=== PATIENT | female | born 1965 | race Hispanic/Latino ===

== ENCOUNTER → 2022-01-22 | Outpatient (CLI) | payer BC | END | disposition home or self-care (01) | LOC: RAH 10:47 | PROVIDERS: ATTEND Family Medicine Sports Medicine | DX: R10.32 Left lower quadrant pain (principal); N32.89 Other specified disorders of bladder; Z90.710 Acquired absence of both cervix and uterus; Z90.721 Acquired absence of ovaries, unilateral | CPT/HCPCS: 76856 ==

== ENCOUNTER → 2023-09-16 | Outpatient (CLI) | payer BC ==
[2023-09-16 10:22] LABS: BASOPHILS # (AUTO) 0.04 K/uL (0.00-0.20); BASOPHILS % (AUTO) 0.6 % (0.0-5.0); EOSINOPHILS # (AUTO) 0.13 K/uL (0.00-0.70); HEMATOCRIT 44.9 % (36-48); IMMATURE GRANULOCYTE ABSOLUTE 0.02 K/uL (0-1); LYMPHOCYTES # (AUTO) 2.7 K/uL (1.0-4.8); MEAN CORPUSCULAR HEMOGLOBIN 31.5 pg (27.0-33.0); MEAN CORPUSCULAR HGB CONC 34.1 g/dL (32.0-36.0); MEAN CORPUSCULAR VOLUME 92.6 fL (79-99); MONOCYTES # (AUTO) 0.5 K/uL (0.1-1.0); MONOCYTES % (AUTO) 7.1 % (3.0-13.0); NEUTROPHILS # (AUTO) 3.2 K/uL (1.8-7.7); PLATELET COUNT (AUTO) 205 K/uL (130-400); RED BLOOD CELL COUNT(AUTO) 4.85 MIL/uL (4.00-5.50); WHITE BLOOD COUNT (AUTO) 6.6 K/uL (4.8-10.8)
[2023-09-16 10:33] LABS: BILIRUBIN,TOTAL 0.3 mg/dL (0.2-1.0); CREATININE 0.8 mg/dL (0.5-1.5); POTASSIUM 4.2 mmol/L (3.5-5.1); TOTAL PROTEIN, SERUM 7.4 g/dL (6.0-8.3)
== END | disposition home or self-care (01) ==
LOC: LAB 09:35
PROVIDERS: ATTEND Internal Medicine Gastroenterology
DX: R10.32 Left lower quadrant pain (principal)
CPT/HCPCS: 36415; 80053; 85025

== ENCOUNTER → 2023-09-22 | Outpatient (CLI) | payer BC ==
[~2023-09-22] MED LIST: IOHEXOL 350 MG/ML 100ML INFUS..BTL IV ONE
== END | disposition home or self-care (01) ==
LOC: RAH 07:35
PROVIDERS: ATTEND Internal Medicine Gastroenterology
DX: K76.0 Fatty (change of) liver, not elsewhere classified (principal); R10.32 Left lower quadrant pain
CPT/HCPCS: 74178; Q9967

== ENCOUNTER 2024-04-07 21:12 | Emergency (ER) | payer BC ==
[~2024-04-07] VITALS: Ht 162.6 cm; Wt 90.7 kg
[2024-04-07 21:28] LABS: APPEARANCE,URINE CLEAR (CLEAR); BILIRUBIN,URINE NEGATIVE (NEGATIVE); COLOR,URINE COLORLESS (YELLOW); GLUCOSE, URINE (UA) NEGATIVE (NEGATIVE); KETONES,URINE NEGATIVE (NEGATIVE); LEUKOCYTE ESTERASE ,URINE 500 Leu/uL (NEGATIVE); NITRATE,URINE NEGATIVE (NEGATIVE); OCCULT BLOOD,URINE NEGATIVE (NEGATIVE); PROTEIN,URINE NEGATIVE (NEGATIVE); UROBILINOGEN,URINE 0.2 mg/dL (0.2-1.0)
[2024-04-07 21:30] LABS: ADD UA MICROSCOPIC YES
[2024-04-07 21:32] LABS: BACTERIA,URINE RARE /HPF (None Seen); MUCUS,URINE RARE LPF (None Seen); OTHER CASTS, URINE 1 /LPF (None Seen); RBC,URINE 0-1 /HPF (0-1); SQUAMOUS EPITHELIAL CELL,UR RARE /HPF (0-2); WBC CLUMP RARE /HPF (0-1); WBC,URINE 26-50 /HPF (0-1)
[2024-04-07 21:37] LABS: BASOPHILS # (AUTO) 0.04 K/uL (0.00-0.20); BASOPHILS % (AUTO) 0.4 % (0.0-5.0); EOSINOPHILS # (AUTO) 0.19 K/uL (0.00-0.70); EOSINOPHILS % (AUTO) 1.7 % (0.0-8.0); HEMATOCRIT 42.5 % (36-48); IMMATURE GRANULOCYTE ABSOLUTE 0.03 K/uL (0-1); LYMPHOCYTES # (AUTO) 3.4 K/uL (1.0-4.8); LYMPHOCYTES % (AUTO) 30.6 % (21.0-51.0); MEAN CORPUSCULAR HEMOGLOBIN 31.4 pg (27.0-33.0); MEAN CORPUSCULAR HGB CONC 33.9 g/dL (32.0-36.0); MEAN CORPUSCULAR VOLUME 92.6 fL (79-99); NEUTROPHILS # (AUTO) 6.4 K/uL (1.8-7.7); PLATELET COUNT (AUTO) 183 K/uL (130-400); RED BLOOD CELL COUNT(AUTO) 4.59 MIL/uL (4.00-5.50); RED CELL DISTRIBUTION WIDTH 11.8 % (11.0-15.5); WHITE BLOOD COUNT (AUTO) 11.1 K/uL (4.8-10.8)
[2024-04-07 21:44] LABS: POTASSIUM 3.9 mmol/L (3.5-5.1)
[2024-04-08 00:15] VITALS: TEMP 98.2
[2024-04-08] MEDS: morPHINE 4 MG SYG IM ONE (00:40)
[2024-04-08 03:25] VITALS: BP 145/77; PULSE 58; RESP 18; O2SAT 98
[2024-04-08] MEDS ORDERED: SULF1TAB42 PO (03:34)
[2024-04-08] MEDS: sulfaMETHOX-TMP DS 800/160 TAB PO SCH (03:56)
== END 2024-04-08 04:03 | disposition home or self-care (01) ==
LOC: EDH 21:12
DX: N89.8 Other specified noninflammatory disorders of vagina (principal); E66.01 Morbid (severe) obesity due to excess calories; Z90.710 Acquired absence of both cervix and uterus; Z68.34 Body mass index [BMI] 34.0-34.9, adult
CPT/HCPCS: 99284; 76856; 80048; 85025; 87210; 87086; 87491; 87591; 81001; 36415; 96372; J2270

== ENCOUNTER 2024-12-20 17:40 | Emergency (ER) | payer BC ==
[~2024-12-20] VITALS: Ht 162.6 cm; Wt 90.7 kg
[~2024-12-20 17:40] MED LIST changes: -IOHEXOL 350 MG/ML 100ML INFUS..BTL IV ONE; +SULF1TAB42 PO
--- NOTE | 2024-12-20 18:13 | ERN ---
General Chief Complaint: Upper Extremity Pain/Injury Stated Complaint: ARM PAIN Time Seen by MD: 17:52 Source: patient History of Present Illness Initial Comments Patient is a 59-year-old female coming in complaining of left arm pain. Patient states he has she woke up like this. Pain initiates from the left trapezius muscle extends to the distal upper left extremity. She states that movement exacerbates her pain. Palpation of the left trapezius also exacerbates pain. Allergies: Coded Allergies: No Known Drug Allergies (Unverified Allergy, Unknown, 01/03/24) Home Meds Active Scripts Sulfamethoxazole/Trimethoprim (Bactrim Ds Tablet) 800 Mg-160 Mg Tablet, 1 TAB PO BID for 10 Days, #20 TAB Prov:DANE SILVA MD 04/08/24 Past Medical History Past Medical History: Other Medical History Other: PALPITATONS Past Surgical History: Hysterectomy, Other Surgical History Other: RT OVARY Female( History) History: Not Applicable ROS Dictation CONSTITUTIONAL: No chills, no fever, no weakness, no diaphoresis, no malaise. HEAD/FACE: No signs of trauma. EENT: No eye pain, no blurred vision, no tearing, no double vision, no ear pain, no ear discharge, no nose pain, no nasal congestion, no throat pain, no throat swelling, no mouth pain. RESPIRATORY: No cough, no orthopnea, no SOB, no stridor, no wheezing. CARDIOVASCULAR: No chest pain, no edema, no palpitations, no syncope. GASTROINTESTINAL/ABDOMINAL: No abdominal pain, no constipation, no diarrhea, no nausea, no vomiting. GENITOURINARY: No abnormal discharge, no dysuria, no frequent urination, no hematuria. No complaints of pain in the genitals. MUSCULOSKELETAL: No back pain, no gout, no joint pain, no joint swelling, muscle pain, no muscle stiffness, no neck pain. INTEGUMENTARY: No change in color, no change in hair/nails, no dryness, no lesion, no lumps, no rash. NEUROLOGICAL/PSYCH: No anxiety, not depressed, no emotional problem, no headache, no numbness, no pre-existing deficit, no history of seizures, no tremors, no weakness. HEMATOLOGIC/LYMPHATIC: Not anemic, no history of blood clots, no apparent bleeding, no bruising, glands not swollen. All Systems Negative, Except as Noted. Physical Exam Physical Exam Dictation VITAL SIGNS: Reviewed. GENERAL APPEARANCE: Alert, oriented x3, no acute distress, obese. HEAD AND FACE: Non-traumatic. EYES: PERRL, pink conjunctivas, eyelid no trauma, anterior chamber clear. EARS: Pinnas intact and no signs of trauma or erythema. Ear canals clear and no discharge. TMs no erythema. NOSE: No discharge, no bleeding. OROPHARYNX: Mouth normal, teeth no caries, tongue pink. Pharynx clear, no erythema. Tonsils no exudates, no abscesses noted. Mucous membrane moist. NECK: Supple, non-tender, no thyromegaly, no masses, no JVD, no bruits. BREAST: Deferred. CHEST: No tenderness, no crepitus, no paradoxical movement, no retractions. LUNGS: Clear, well-ventilated, symmetric, no rales, no wheezing, no rhonchi, no stridor, good breath sounds bilaterally. HEART: Regular rate, regular rhythm, no murmur, no gallops. VASCULAR: No peripheral edema. ABDOMEN: Soft, positive bowel sounds, nondistended, no guarding, nontender, no rebound, no masses no hepatomegaly, no splenomegaly, no Naidu's sign, no hernias. RECTAL: Deferred. GENITAL: Deferred. NEUROLOGICAL: Normal speech, gross motor function intact, gross sensory function intact. MUSCULOSKELETAL: Neck nontender, full range of motion, back nontender, full range of motion. EXTREMITIES: Nontender, full range of motion. Left trapezius muscle tenderness on palpation, left deltoid muscle tenderness on palpation SKIN: Color pink, dry, no turgor, no rash, no lacerations, no abrasions, no contusions. LYMPHATICS: Deferred. Extremities Comment Palpation along the supraspinatus in his supraspinatus tendon was negative. When I tried to move with the patient's arm she complained that it started hurting in her left biceps muscle. The area is not swollen there is no contusions nothing to suggest a localized infection or injury in that area. Results Laboratory and Microbiology Labs Reviewed?: Yes EKG/XRAY/US/CT/MRI EKG Comment 12/20/2024 time 6:14 p.m. Ventricular rate 54 Sinus rhythm NE [address] wave elevation or depression MDM MDM: Differential diagnosis: Muscle strain, muscle spasm, shoulder strain, Rationale: Tests considered and ordered secondary to shared decision making include: Previous outside records reviewed: Old ER visits. Risk of complication and/or morbidity or mortality of patient management: None Medications-Per medication reconciliation Patient is a 59-year-old female coming in to be evaluated for left shoulder pain. On physical exam there is tenderness to palpation of the left trapezius muscle extending down the deltoid and the triceps area as well as forearm. Patient given an injection of Norflex and Toradol with no relief in her symptoms. ED Course Orders Procedure Category Date Status Time 12 Lead Ekg Tracing- EKG 12/20/24 Complete Technical 18:09 Orphenadrine Citrate PHA 12/20/24 Complete (Norflex) 18:30 Ketorolac PHA 12/20/24 Complete Tromethamine 30mg/Ml 18:30 Current Medications Medications (Trade) Dose Ordered Sig/Katty Route PRN Reason Start Time Stop Time Status Last Admin Dose Admin Ketorolac Tromethamine (toRADol) 30 mg ONCE ONCE IM 12/20/24 18:30 12/20/24 18:31 DC 12/20/24 19:34 Orphenadrine Citrate (Norflex) 60 mg ONCE ONCE IM 12/20/24 18:30 12/20/24 18:31 DC 12/20/24 19:33 Vital Signs Date Time Temp Pulse Resp B/P (MAP) Pulse Ox O2 Delivery O2 Flow Rate FiO2 12/20/24 17:42 98.2 58 16 135/78 99 Room Air DX & DISP Disposition: Other(Comment) (Patient care transition Dr. Anderson) Departure Impression: Primary Impression: Shoulder strain Condition: Stable Referrals: NIKUNJ FULTON (PCP) TIAN ELIZABETH MD December 20, 2024 18:13 ANA ANDERSON MD December 20, 2024 19:40
--- NOTE | 2024-12-20 18:16 | EKG ---
[facility] Test Date: 2024-12-20 Test Time: 18:14:05 Pat Name: DANGELO SIMS Department: ED Room: Gender: F Gamb Cutter: [id number] : [id number] Requested By: TIAN ELIZABETH Order Number: [id number] Reading MD: Arlet Rojas Measurements Intervals [place] Rate: 54 P: 40 NC: 121 QRS: -20 QRSD: 94 T: -2 QT: 415 QTc: 394 Interpretive Statements Sinus rhythm Low voltage, precordial leads Compared to ECG 01/03/2024 18:27:07 Low QRS voltage now present T-wave abnormality no longer present Electronically Signed On 12-21-2024 14:47:16 CDT by Arlet Rojas Please click the below link to view image of tracing.
--- NOTE | 2024-12-20 19:24 | NUR ---
ASSUMED CARE AT THIS TIME
[2024-12-20] MEDS: ORPHENADRINE 60MG/2ML IM ONE (19:33)
[2024-12-20] MEDS: ketOROlac 30MG VIAL (30MG/ML) IM ONE (19:34)
[2024-12-20 19:40] VITALS: BP 131/76; PULSE 60; RESP 16; TEMP 98.2; O2SAT 99
== END 2024-12-20 19:43 | disposition home or self-care (01) ==
LOC: EDH 17:40
DX: S46.812A Strain of other muscles, fascia and tendons at shoulder and upper arm level, left arm, initial encounter (principal); Z90.710 Acquired absence of both cervix and uterus; X58.XXXA Exposure to other specified factors, initial encounter; Y93.89 Activity, other specified; Y92.89 Other specified places as the place of occurrence of the external cause; Y99.8 Other external cause status
CPT/HCPCS: 99284; 96372 ×2; 93005; J1885; J2360

== ENCOUNTER 2025-06-10 06:09 | Observation (INO) | payer BC ==
[~2025-06-10] VITALS: Ht 162.6 cm; Wt 90.3 kg
[2025-06-10 06:26] LABS: IMMATURE GRANULOCYTE ABSOLUTE 0.01 K/uL (0-1); NUCLEATED RED BLOOD CELLS 0.0 % (0.0-0.19); PLATELET COUNT (AUTO) 164 K/uL (130-400); RED BLOOD CELL COUNT(AUTO) 4.87 MIL/uL (4.00-5.50); RED CELL DISTRIBUTION WIDTH 12.3 % (11.0-15.5); WHITE BLOOD COUNT (AUTO) 6.3 K/uL (4.8-10.8)
[2025-06-10 06:34] LABS: CREATININE 0.9 mg/dL (0.5-1.0); GLOMERULAR FILTR. RATE CALC 73.0 mL/min (>90); GLUCOSE,RANDOM 133.0 mg/dL (70-105); SODIUM SERUM 137.0 mmol/L (136-145); UREA NITROGEN, BLOOD 11.0 mg/dL (7-18)
--- NOTE | 2025-06-10 06:38 | ERN ---
ED Note History of Present Illness Stated Complaint: LEFT LOWER ABD PAIN Chief Complaint: Abdominal Pain Time Seen by MD: 06:27 Dictation: 60-year-old female recently diagnosed with diverticulitis here for worsening left-sided abdominal pain. Patient states she was seen by her PCP and given antibiotics for lower abdominal pain. States that the pain has pain, progressively worsening with the fact where she decided to come to the emergency room for evaluation. States that clear was diagnosed clinically however has not had any imaging of her lower abdomen. She is requesting pain medications at this time Allergies: Coded Allergies: No Known Drug Allergies (Unverified Allergy, Unknown, 01/03/24) Home Meds Active Scripts Sulfamethoxazole/Trimethoprim (Bactrim Ds Tablet) 800 Mg-160 Mg Tablet, 1 TAB PO BID for 10 Days, #20 TAB Prov:DANE SILVA MD 04/08/24 Past Medical History Past Medical History: Diverticulitis, Hypertension, Other Additional Past Medical Hx: PALPITATONS Surgical History: Hysterectomy, Other Surgical History Other: RT OVARY History: Not Applicable Review of System Dictation Positive for abdominal pain. Review of Systems: was completed, & the rest were negative. Initial Vital Sign VS Vital Signs Date Time Temp Pulse Resp B/P (MAP) Pulse Ox O2 Delivery O2 Flow Rate FiO2 06/10/25 06:10 97.0 65 16 144/74 99 Room Air 06/10/25 06:20 0 21 Physical Exam Dictation GENERAL APPEARANCE NAD, activity normal for age, well developed/ well nourished, no cyanosis, pallor, or diaphoresis. EYES lids/conjunctiva normal. EARS/NOSE/THROAT Mucous membranes moist, nares normal, lips/teeth normal uvula midline without oral pharyngeal erythema, exudate or swelling TMs normal bilaterally. No lymphangitis/lymphedema. HEAD/NECK normocephalic atraumatic, no facial trauma, neck is supple. RESPIRATORY respiratory effort normal, speaks in full sentences, no tripod position, no accessory muscle use. Lungs clear to auscultation without rhonchi, wheezes, rales CARDIAC Regular rate and rhythm, no edema. ABDOMINAL Soft, left lower quadrant tenderness. Right CVA and left CVA tenderness. MUSCLES/EXTREMITIES No abnormal range of motion, no swelling. SKIN Warm, pink and dry. No rashes, dermatoses, petechiae or lesions. NEUROLOGICAL Speech is clear and appropriate. Normal level of consciousness. Gait and coordination are normal. 5/5 strength in all extremities. PSYCH Normal mood and affect. Judgement/competence is appropriate Results (Laboratory/Radiology) Laboratory/Radiology Laboratory Tests Test 06/10/25 06:19 06/10/25 06:36 White Blood Count 6.3 K/uL (4.8-10.8) Red Blood Count 4.87 MIL/uL (4.00-5.50) Hemoglobin 15.1 g/dL (12.0-16.0) Hematocrit 44.4 % (36-48) Mean Corpuscular Volume 91.2 fL (79-99) Mean Corpuscular Hemoglobin 31.0 pg (27.0-33.0) Mean Corpuscular Hemoglobin Concent 34.0 g/dL (32.0-36.0) Red Cell Distribution Width 12.3 % (11.0-15.5) Platelet Count 164 K/uL (130-400) Mean Platelet Volume 11.9 fL (7.5-10.5) H Immature Granulocyte % (Auto) 0.2 % (0-1) Neutrophils (%) (Auto) 48.0 % (40.0-77.0) Lymphocytes (%) (Auto) 38.4 % (21.0-51.0) Monocytes (%) (Auto) 9.0 % (3.0-13.0) Eosinophils (%) (Auto) 3.8 % (0.0-8.0) Basophils (%) (Auto) 0.6 % (0.0-5.0) Neutrophils # (Auto) 3.0 K/uL (1.8-7.7) Lymphocytes # (Auto) 2.4 K/uL (1.0-4.8) Monocytes # (Auto) 0.6 K/uL (0.1-1.0) Eosinophils # (Auto) 0.24 K/uL (0.00-0.70) Basophils # (Auto) 0.04 K/uL (0.00-0.20) Absolute Immature Granulocyte (auto 0.01 K/uL (0-1) Nucleated Red Blood Cells 0.0 % (0.0-0.19) Sodium Level 137 mmol/L (136-145) Potassium Level 3.8 mmol/L (3.5-5.1) Chloride Level 103 mmol/L (101-111) Carbon Dioxide Level 26 mmol/L (21-32) Blood Urea Nitrogen 11 mg/dL (7-18) Creatinine 0.9 mg/dL (0.5-1.0) Glomerular Filtration Rate Calc 73 mL/min (>90) Random Glucose 133 mg/dL (70-105) H Total Calcium 8.4 mg/dL (8.5-10.1) L Total Bilirubin 0.6 mg/dL (0.2-1.0) Direct Bilirubin 0.1 mg/dL (0.0-0.3) Aspartate Amino Transf (AST/SGOT) 25 U/L (10-37) Alanine Aminotransferase (ALT/SGPT) 44 U/L (12-78) Alkaline Phosphatase 77 U/L (50-136) Total Protein 6.9 g/dL (6.0-8.3) Albumin 3.8 g/dL (3.5-5.0) Lipase 23 U/L (16-77) Urine Color LIGHT-YELLOW (YELLOW) Urine Appearance CLEAR (CLEAR) Urine pH 6.5 (5.0-8.0) Urine Specific [place] 1.007 (1.001-1.031) Urine Protein NEGATIVE mg/dL (NEGATIVE) Urine Glucose (UA) NEGATIVE mg/dL (NEGATIVE) Urine Ketones NEGATIVE mg/dL (NEGATIVE) Urine Occult Blood NEGATIVE (NEGATIVE) Urine Nitrate NEGATIVE (NEGATIVE) Urine Bilirubin NEGATIVE mg/dL (NEGATIVE) Urine Urobilinogen 0.2 mg/dL (0.2-1.0) Urine Leukocyte Esterase NEGATIVE Es/uL ED Course ED Course Orders Procedure Category Date Status Time Vital Signs Per CPOE 06/10/25 Transmitted Routine 06:16 Saline Lock Iv CPOE 06/10/25 Transmitted 06:16 Cbc With Differential LAB 06/10/25 Complete 06:16 Lipase LAB 06/10/25 Complete 06:16 Urinalysis Profile LAB 06/10/25 Complete 06:16 Basic Metabolic Panel LAB 06/10/25 Complete 06:16 Ct Abdomen/Pelvis CT 06/10/25 Resulted W/Contrast 06:27 Morphine 4mg Syg PHA 06/10/25 Complete (Morphine 4mg Syg) 07:00 Ondansetron 4mg Inj PHA 06/10/25 Complete (Zofran 4mg Inj) 07:00 Hepatic Function Panel LAB 06/10/25 Complete 06:34 Iohexol (Omnipaque) PHA 06/10/25 Complete 06:45 Current Medications Medications (Trade) Dose Ordered Sig/Katty Route PRN Reason Start Time Stop Time Status Last Admin Dose Admin Iohexol (Omnipaque) 75 ml STK-MED ONCE IV 06/10/25 06:45 06/10/25 06:45 DC Morphine Sulfate (morPHINE 4MG SYG) 4 mg ONCE ONCE IVP 06/10/25 07:00 06/10/25 07:01 DC 06/10/25 07:49 Ondansetron HCl (zoFRAN 4MG INJ) 4 mg ONCE ONCE IVP 06/10/25 07:00 06/10/25 07:01 DC 06/10/25 07:49 Vital Signs Date Time Temp Pulse Resp B/P (MAP) Pulse Ox O2 Delivery O2 Flow Rate FiO2 06/10/25 07:28 97.9 63 16 116/80 99 Room Air* 0 21 06/10/25 06:20 97.2 62 18 146/82 98 Room Air* 0 21 06/10/25 06:10 97.0 65 16 144/74 99 Room Air Medical Decision Making MDM 60-year-old female recently diagnosed with diverticulitis here for evaluation of lower abdominal pain. This is likely exacerbation of diverticulitis. We will get CT scan to confirm. If positive patient would likely benefit from inpatient management of pain. Disposition pending results of imaging. MDM: Differential diagnosis: Rationale: Tests considered and ordered secondary to shared decision making include: labs, ECG and radiology Previous outside records reviewed: Old ER visits. Risk of complication and/or morbidity or mortality of patient management: None Medications-Per medication reconciliation Need for hospitalization: Patient does meet criteria for hospitalization. Need for emergency major/minor surgery: No There are no social concerns with this patient. Prescription drug management Prescriptions will include symptomatic care Patient's prior external medical records from other ER visits were reviewed by me as indicated. Prior testing and results from previous visits were reviewed. Prior tests were taken into account with medical decision making and resource utilization, independent historian/historians were used to obtain complete medical history. I independently interpreted the test that were performed, results were reviewed by me and considered findings on radiology if ordered. Medical management and examination interpretation discussions were had by me with other qualified healthcare professionals as indicated for the patient's care. 60-year-old female with intractable abdominal pain, vital signs stable, initial workup stable however patient is still having abdominal discomfort requiring further care and evaluation. DX & DISP Disposition: Observation Departure Impression: Primary Impression: Abdominal pain Condition: Stable Referrals: ARIS CHOPRA MD (PCP) HAILEY AMOS MD Jun 10, 2025 06:38 CARRIE MANRIQUE MD Jun 10, 2025 09:24
[2025-06-10] MEDS ORDERED: IOHEXOL-350 75 ML VIAL IV ONE (06:45)
[2025-06-10 06:55] LABS: APPEARANCE,URINE CLEAR (CLEAR); GLUCOSE, URINE (UA) NEGATIVE (NEGATIVE); LEUKOCYTE ESTERASE ,URINE NEGATIVE Leu/uL (NEGATIVE); NITRATE,URINE NEGATIVE (NEGATIVE); OCCULT BLOOD,URINE NEGATIVE (NEGATIVE)
[2025-06-10 06:57] LABS: ADD UA MICROSCOPIC NO
[2025-06-10 07:38] LABS: ASPARTATE AMINOTRANSFERASE 25.0 U/L (10-37); TOTAL PROTEIN, SERUM 6.9 g/dL (6.0-8.3)
--- NOTE | 2025-06-10 07:45 | HMCIMG ---
EXAM: CT Abdomen and Pelvis with IV contrast CLINICAL HISTORY: Rule out diverticulitis. TECHNIQUE: Axial computed tomography images of the abdomen and pelvis with intravenous contrast. CONTRAST: with intravenous contrast. COMPARISON: None provided. FINDINGS: LUNG BASES: The lung bases appear clear. No pleural effusions are seen. LIVER: The liver is mildly enlarged and measures 17.0 cm in craniocaudal span. GALLBLADDER AND BILE DUCTS: The gallbladder appears within normal limits. No radioopaque gallstones are seen. No biliary ductal dilatation is evident. PANCREAS: Unremarkable. SPLEEN: Unremarkable. ADRENAL GLANDS: Unremarkable. KIDNEYS, URETERS, AND BLADDER: The kidneys appear within normal limits. There is no hydronephrosis or hydroureter. No urinary calculi are seen. STOMACH AND BOWEL: The cecum and ascending colon are fecal loaded. Few colonic diverticuli without any evidence of diverticulitis. Unremarkable appearance of the stomach and bowel. No evidence of bowel obstruction. No evidence suggesting enteritis or colitis. APPENDIX: No evidence of acute appendicitis on CT examination. PERITONEUM: No free fluid. No free air. LYMPH NODES: No lymphadenopathy is evident. REPRODUCTIVE: Unremarkable as visualized. VASCULATURE: No evidence of abdominal aortic aneurysm. BONES: No aggressive appearing osseous lesion. No acute osseous pathology evident. IMPRESSION: Mild hepatomegaly. Few colonic diverticula without evidence of diverticulitis. Fecal loading of the cecum and ascending colon. /[place]
[2025-06-10] MEDS: DEXTROSE 5 % AND 0.9 % NACL 1,000 ML IV SCH (10:13)
--- NOTE | 2025-06-10 10:17 | NUR ---
PT REFUSED MORPHINE, STATES THE PREVIOUS MORPHINE GIVEN TO DAY MADE HER VERY NAUSEOUS
[2025-06-10] MEDS ORDERED: ESTR1PAT88 TD (10:23)
[2025-06-10] MEDS ORDERED: PROG100C11 PO (10:23)
[2025-06-10] MEDS ORDERED: METO25TA6 PO (10:23)
--- NOTE | 2025-06-10 11:46 | NUR ---
SURGICAL CONSULT: DR SANTIZO WAS INFORMED OF HIS CONSULT FOR THE PT.
--- NOTE | 2025-06-10 12:13 | NUR ---
RECEIVED HANDOFF REPORT FROM [facility].
[2025-06-10] MEDS: MAGNESIUM CITRATE 296 ML SOLUTION PO ONE (13:55)
[2025-06-10] MEDS: LACTULOSE 20 GM/30 ML UDCUP PO ONE (13:55)
[2025-06-10] MEDS: LACTATED RINGERS 1000ML 1,000 ML IV SCH (13:55)
[2025-06-10] MEDS: MAGNESIUM HYDROXIDE 30 ML/UDCUP PO ONE (14:35)
[2025-06-10 16:00] VITALS: BP 134/60; PULSE 65; RESP 19; TEMP 98
--- NOTE | 2025-06-10 16:15 | NUR ---
DCP:HOME Pt currently lives at home with her Home K[facility] [phone]. Pt does not have any DME, home health, or provider services. Pt states that she is able to complete ADLs independently. PCP is Dr. Rosa Maria Montiel and uses [facility] for any RX needs. At DC pt will want to go home and family can assist with transportation.
[2025-06-10 16:30] VITALS: O2SAT 98
--- NOTE | 2025-06-10 16:38 | CONS ---
GENERAL SURGERY CONSULTATION NOTE Date/Time Patient Seen: [June 10 2025 ] Requesting Physician: [ Dr. Jasbir Banegas] Reason for Consultation: [ Left lower quadrant abdominal pain] History of Present Illness: [ Patient with recurrent left lower quadrant abdominal pain presents to the emergency room due to increasing abdominal pain. Patient indicates she has had the same pain on and off for about 4-5 years. Patient denies any melena, hematochezia accompanied intubated. Patient has a history of colonoscopy only the standard with a was negative for any malignancy. 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 Patient's CT scan that was done in the emergency shows a sigmoid colon and descending colon distended with stool there does not appear to be any mass effect. Patient's lab work does not show any leukocytosis. Past Medical History: [ Diverticulosis, hypertension] Past Surgical History: [ Hysterectomy and right oophorectomy] Family History: [ ] Noncontributory Social History: [ Patient denies any illicit] Habits: [Never] smoker. [Denies] alcohol consumption. [Denies] illicit drug use Current Medications Medications (Trade) Dose Ordered Sig/Katty Route Start Time Stop Time Status Last Admin Dose Admin Dextrose/Sodium Chloride 1,000 ml @ 75 mls/hr [id number] IV 06/10/25 09:30 06/10/25 13:25 DC 06/10/25 10:13 75 MLS/HR Enoxaparin Sodium (Lovenox (Pharmacy To Dose)) 1 unit Q24H SQ 06/10/25 09:30 06/10/25 09:33 DC Ketorolac Tromethamine (toRADol) 15 mg ONCE STAT IV 06/10/25 09:24 06/10/25 09:27 DC 06/10/25 10:13 15 MG Lactated Ringer's 1,000 ml @ 125 mls/hr Q8H IV 06/10/25 13:30 07/10/25 13:29 06/10/25 13:55 125 MLS/HR Morphine Sulfate (morPHINE 4MG SYG) 4 mg ONCE STAT IVP 06/10/25 09:24 06/10/25 09:27 DC Review of Systems: 14 review of systems negative except was mentioned in history of present illness Physical Examination: PHYSICAL EXAM EYES: Sclera white HENT: Oral nasal mucosa pink and moist NECK: Supple, . LUNGS: Unlabored CARDIOVASCULAR: Regular rate and rhythm ABDOMEN: Tender to palpation in left lower quadrant. No rebound. No peritoneal signs. CENTRAL NERVOUS SYSTEM: Awake, alert, oriented x3 SKIN: No rashes, no swelling. LYMPHATICS: No peripheral lymphadenopathy MUSCULOSKELETAL: Motor and sensory function grossly intact EXTREMITIES: No cyanosis or clubbing Vital Signs (last 8hr) Date Time Temp Pulse Resp B/P (MAP) Pulse Ox O2 Delivery O2 Flow Rate FiO2 06/10/25 10:23 63 16 115/41 99 Room Air* 0 21 Laboratory: [ ] Hematology Labs: Test 06/10/25 06:19 Range/Units White Blood Count 6.3 4.8-10.8 K/uL Red Blood Count 4.87 4.00-5.50 MIL/uL Hemoglobin 15.1 12.0-16.0 g/dL Hematocrit 44.4 36-48 % Mean Corpuscular Volume 91.2 79-99 fL Mean Corpuscular Hemoglobin 31.0 27.0-33.0 pg Mean Corpuscular Hemoglobin Concent 34.0 32.0-36.0 g/dL Red Cell Distribution Width 12.3 11.0-15.5 % Platelet Count 164 130-400 K/uL Mean Platelet Volume 11.9 H 7.5-10.5 fL Immature Granulocyte % (Auto) 0.2 0-1 % Neutrophils (%) (Auto) 48.0 40.0-77.0 % Lymphocytes (%) (Auto) 38.4 21.0-51.0 % Monocytes (%) (Auto) 9.0 3.0-13.0 % Eosinophils (%) (Auto) 3.8 0.0-8.0 % Basophils (%) (Auto) 0.6 0.0-5.0 % Neutrophils # (Auto) 3.0 1.8-7.7 K/uL Lymphocytes # (Auto) 2.4 1.0-4.8 K/uL Monocytes # (Auto) 0.6 0.1-1.0 K/uL Eosinophils # (Auto) 0.24 0.00-0.70 K/uL Basophils # (Auto) 0.04 0.00-0.20 K/uL Absolute Immature Granulocyte (auto 0.01 0-1 K/uL Nucleated Red Blood Cells 0.0 0.0-0.19 % Chemistry Labs: Test 06/10/25 06:19 Range/Units Sodium Level 137 136-145 mmol/L Potassium Level 3.8 3.5-5.1 mmol/L Chloride Level 103 101-111 mmol/L Carbon Dioxide Level 26 21-32 mmol/L Blood Urea Nitrogen 11 7-18 mg/dL Creatinine 0.9 0.5-1.0 mg/dL Glomerular Filtration Rate Calc 73 >90 mL/min Random Glucose 133 H 70-105 mg/dL Total Calcium 8.4 L 8.5-10.1 mg/dL Total Bilirubin 0.6 0.2-1.0 mg/dL Direct Bilirubin 0.1 0.0-0.3 mg/dL Aspartate Amino Transf (AST/SGOT) 25 10-37 U/L Alanine Aminotransferase (ALT/SGPT) 44 12-78 U/L Alkaline Phosphatase 77 50-136 U/L Total Protein 6.9 6.0-8.3 g/dL Albumin 3.8 3.5-5.0 g/dL Lipase 23 16-77 U/L Diagnostics / Radiology: [Copy/Paste Echos/Imaging Report here] Assessment: [severe constipation ] Plan: [We will treat the patient conservatively for now. NPO but with the bowel regimen. If patient's condition does not improve then patient may need an exploration. Risks associated with any procedure if not intend to infection, bleeding, injury to surrounding structures has been explained to patient and family and they indicate they understand ] MINO CHAVEZ MD Jun 10, 2025 16:38
[2025-06-10 20:00] VITALS: BP 125/67; PULSE 58; RESP 18; TEMP 97.6; O2SAT 100
[2025-06-11 00:46] VITALS: BP 122/69; PULSE 58; RESP 17; TEMP 97.8
[2025-06-11 04:50] VITALS: BP 137/56; PULSE 49; RESP 18; TEMP 97.8
[2025-06-11 05:43] LABS: NUCLEATED RED BLOOD CELLS 0.0 % (0.0-0.19); PLATELET COUNT (AUTO) 135.0 K/uL (130-400); RED BLOOD CELL COUNT(AUTO) 4.33 MIL/uL (4.00-5.50); RED CELL DISTRIBUTION WIDTH 12.2 % (11.0-15.5); WHITE BLOOD COUNT (AUTO) 6.4 K/uL (4.8-10.8)
[2025-06-11 06:04] LABS: CREATININE 0.8 mg/dL (0.5-1.0); GLOMERULAR FILTR. RATE CALC 84.0 mL/min (>90); GLUCOSE,RANDOM 98.0 mg/dL (70-105); SODIUM SERUM 139.0 mmol/L (136-145); UREA NITROGEN, BLOOD 10.0 mg/dL (7-18)
--- NOTE | 2025-06-11 06:39 | HP ---
PRESENTING COMPLAINT: Abdominal pain, nausea, and vomiting. HISTORY OF PRESENT ILLNESS: A 60-year-old female with history of diverticulitis, hypertension, and obesity, who presented to the hospital with abdominal pain. Symptoms have been going on for about 10 days. The patient was treated for diverticulitis with antibiotics by her primary care physician, but due to persistent pain, decided to come to the Emergency Room. The pain is localized to the left lower quadrant with no radiation. She has some nausea and vomiting. CT of the abdomen done in the Emergency Room shows diverticulosis, no evidence of diverticulitis. No fever. No chills. WBC is normal at 6.3. No dysuria or urinary frequency. No rashes or itchiness. PAST MEDICAL HISTORY: Diverticulitis. Hypertension. Obesity. PAST SURGICAL HISTORY: Hysterectomy. Right oophorectomy. ALLERGIES: No known drug allergies. HOME MEDICATIONS: Metoprolol. SOCIAL HISTORY: No alcohol or tobacco or illicit drug use. FAMILY HISTORY: Noncontributory. REVIEW OF SYSTEMS: Greater than 10 systems were reviewed, negative except as documented above. PHYSICAL EXAMINATION: GENERAL: Elderly female, awake, not in distress. VITAL SIGNS: Temperature 97.9, pulse 63, respiratory rate 16, BP 115/41. EYES: No icterus. Pupils are equal and reactive. HENT: No oral thrush seen. Moist oral mucosa. NECK: Supple. No JVD or thyromegaly. LUNGS: Good air entry. No rales. No rhonchi. CARDIOVASCULAR SYSTEM: S1 and S2 regular. No murmur heard. ABDOMEN: Obese. Bowel sounds are present. Tenderness to the left lower quadrant. No organomegaly. CENTRAL NERVOUS SYSTEM: Awake, alert, and oriented x 3. No focal deficits. SKIN: No rashes, no itchiness. LYMPHATIC: No peripheral lymphadenopathy. BACK: No deformity. No pressure ulcer. MUSCULOSKELETAL: No joint swelling, erythema, or tenderness. LABORATORY DATA: Sodium 137, potassium 3.8, BUN 11, creatinine 0.9. WBC is 6.3, hemoglobin 15.1, platelets 164. Urinalysis negative. RADIOLOGY: CT of the abdomen shows mild hepatomegaly and diverticulosis. ASSESSMENT: A 60-year-old female with hypertension, obesity, who presented with abdominal pain. CURRENT PROBLEMS: Include: Constipation. Abdominal pain. Diverticulosis. Hypertension. Obesity. PLAN: Admit the patient to medical floor. The patient will be given morphine as needed for pain. The patient will be started on a laxative. The patient to be evaluated by General Surgery. Continue home antihypertensives. Zofran as needed for nausea and vomiting. Monitor electrolytes and correct as needed. The patient will be followed up closely. TID: [id number] RECEIPT: [id number]
[2025-06-11 08:00] VITALS: BP 132/56; PULSE 47; RESP 18; TEMP 97.3; O2SAT 100
--- NOTE | 2025-06-11 10:27 | PN ---
INFECTIOUS DISEASE PROGRESS NOTE Date of Service: Jun 11, 2025 SUBJECTIVE: This is a 60-year-old female patient admitted for chief complaint of abdominal pain, nausea or vomiting. A CT of the abdomen and pelvis showed diverticulosis without evidence of diverticulitis and constipation. Patient is afebrile this morning, temperature is 97.3. Patient was given lactulose and Dulcolax suppository yesterday and had several bowel movements throughout the night. PHYSICAL EXAM EYES: Anicteric. Pupils equal and reactive. HENT: No oral thrush seen, moist Oral mucosa NECK: Supple, no JVD or thyromegaly. LUNGS: Good air entry. No rales, no rhonchi. CARDIOVASCULAR: S1, S2 regular. No murmur heard. ABDOMEN: Soft, bowel sounds present. Abdominal tenderness. CENTRAL NERVOUS SYSTEM: Awake, alert, oriented x 3. SKIN: No rashes, no swelling. LYMPHATICS: No peripheral lymphadenopathy. MUSCULOSKELETAL: No joint swelling, erythema or tenderness. EXTREMITIES: No cyanosis or clubbing. BACK: No deformity, no pressure ulcer. GENITOURINARY: No dysuria or hematuria. Vital Sign (Last 12 Hours) 06/11/25 06/11/25 06/11/25 00:46 04:50 08:00 Temp 97.9 97.9 97.3 Pulse 58 49 47 Resp 17 18 18 B/P (MAP) 122/69 137/56 132/56 Pulse Ox 96 99 100 O2 Delivery Room Air Room Air Room Air FiO2 21 Intake & Output (last 24hrs) 06/10/25 06/10/25 06/11/25 15:00 23:00 07:00 Intake Total 0 ml Balance 0 ml LABS: Laboratory: Test 06/11/25 05:32 06/10/25 06:36 06/10/25 06:19 Range/Units White Blood Count 6.4 4.8-10.8 K/uL Red Blood Count 4.33 4.00-5.50 MIL/uL Hemoglobin 13.5 12.0-16.0 g/dL Hematocrit 41.2 36-48 % Mean Corpuscular Volume 95.2 79-99 fL Mean Corpuscular Hemoglobin 31.2 27.0-33.0 pg Mean Corpuscular Hemoglobin Concent 32.8 32.0-36.0 g/dL Red Cell Distribution Width 12.2 11.0-15.5 % Platelet Count 135 130-400 K/uL Mean Platelet Volume 12.5 H 7.5-10.5 fL Nucleated Red Blood Cells 0.0 0.0-0.19 % Sodium Level 139 136-145 mmol/L Potassium Level 3.6 3.5-5.1 mmol/L Chloride Level 106 101-111 mmol/L Carbon Dioxide Level 26 21-32 mmol/L Blood Urea Nitrogen 10 7-18 mg/dL Creatinine 0.8 0.5-1.0 mg/dL Glomerular Filtration Rate Calc 84 >90 mL/min Random Glucose 98 70-105 mg/dL Total Calcium 8.2 L 8.5-10.1 mg/dL Magnesium Level 2.30 1.80-2.40 mg/dL Urine Color LIGHT-YELLOW YELLOW Urine Appearance CLEAR CLEAR Urine pH 6.5 5.0-8.0 Urine Specific [place] 1.007 1.001-1.031 Urine Protein NEGATIVE NEGATIVE mg/dL Urine Glucose (UA) NEGATIVE NEGATIVE mg/dL Urine Ketones NEGATIVE NEGATIVE mg/dL Urine Occult Blood NEGATIVE NEGATIVE Urine Nitrate NEGATIVE NEGATIVE Urine Bilirubin NEGATIVE NEGATIVE mg/dL Urine Urobilinogen 0.2 0.2-1.0 mg/dL Urine Leukocyte Esterase NEGATIVE NEGATIVE Es/uL Immature Granulocyte % (Auto) 0.2 0-1 % Neutrophils (%) (Auto) 48.0 40.0-77.0 % Lymphocytes (%) (Auto) 38.4 21.0-51.0 % Monocytes (%) (Auto) 9.0 3.0-13.0 % Eosinophils (%) (Auto) 3.8 0.0-8.0 % Basophils (%) (Auto) 0.6 0.0-5.0 % Neutrophils # (Auto) 3.0 1.8-7.7 K/uL Lymphocytes # (Auto) 2.4 1.0-4.8 K/uL Monocytes # (Auto) 0.6 0.1-1.0 K/uL Eosinophils # (Auto) 0.24 0.00-0.70 K/uL Basophils # (Auto) 0.04 0.00-0.20 K/uL Absolute Immature Granulocyte (auto 0.01 0-1 K/uL Total Bilirubin 0.6 0.2-1.0 mg/dL Direct Bilirubin 0.1 0.0-0.3 mg/dL Aspartate Amino Transf (AST/SGOT) 25 10-37 U/L Alanine Aminotransferase (ALT/SGPT) 44 12-78 U/L Alkaline Phosphatase 77 50-136 U/L Total Protein 6.9 6.0-8.3 g/dL Albumin 3.8 3.5-5.0 g/dL Lipase 23 16-77 U/L DIAGNOSTICS / RADIOLOGY: PATIENT: DANGELO SIMS MR#: [id number] : 1965 SEX: F AGE: 60 LOCATION: [facility] ORDER 7 STATUS: [facility] REPORT#: [id number] SERVICE 6 REASON: Rule out diverticulitis. Seen by PCP ORDERING PHYSICIAN: HAILEY AMOS MD PROCEDURE: ABD PEL W - CT ABDOMEN/PELVIS W/CONTRAST EXAM: CT Abdomen and Pelvis with IV contrast CLINICAL HISTORY: Rule out diverticulitis. TECHNIQUE: Axial computed tomography images of the abdomen and pelvis with intravenous contrast. CONTRAST: with intravenous contrast. COMPARISON: None provided. FINDINGS: LUNG BASES: The lung bases appear clear. No pleural effusions are seen. LIVER: The liver is mildly enlarged and measures 17.0 cm in craniocaudal span. GALLBLADDER AND BILE DUCTS: The gallbladder appears within normal limits. No radioopaque gallstones are seen. No biliary ductal dilatation is evident. PANCREAS: Unremarkable. SPLEEN: Unremarkable. ADRENAL GLANDS: Unremarkable. KIDNEYS, URETERS, AND BLADDER: The kidneys appear within normal limits. There is no hydronephrosis or hydroureter. No urinary calculi are seen. STOMACH AND BOWEL: The cecum and ascending colon are fecal loaded. Few colonic diverticuli without any evidence of diverticulitis. Unremarkable appearance of the stomach and bowel. No evidence of bowel obstruction. No evidence suggesting enteritis or colitis. APPENDIX: No evidence of acute appendicitis on CT examination. PERITONEUM: No free fluid. No free air. LYMPH NODES: No lymphadenopathy is evident. REPRODUCTIVE: Unremarkable as visualized. VASCULATURE: No evidence of abdominal aortic aneurysm. BONES: No aggressive appearing osseous lesion. No acute osseous pathology evident. IMPRESSION: Mild hepatomegaly. Few colonic diverticula without evidence of diverticulitis. Fecal loading of the cecum and ascending colon. /[place] DICTATED BY: AYM BOUCHER Jr., MD DATE: 06/10/25843 ASSESSMENT: Abdominal pain. Diverticulosis. Constipation. Nausea or vomiting. PLAN: Continue pain management. Continue IV fluids. Continue antiemetics. Lactulose has been administered. This case was reviewed and discussed with my supervising physician Dr. Aj and the above assessment and plan was formulated and agreed upon. ATTESTATION BY PHYSICIAN I have seen and examined the patient. I reviewed the documentation, medical decision making, and treatment plan as noted by the mid-level provider above. I agree with the findings and plan of care. JANNETH AJ MD, [facility] Jun 11, 2025 10:27
--- NOTE | 2025-06-11 11:05 | PN ---
GENERAL SURGERY PROGRESS NOTE Date/Time Patient Seen: [06/11/2025 ] Problem List: [Severe constipation] Interval History: [The patient was evaluated at the bedside this morning. No acute overnight events were reported by the patient's nurse. Patient states she had 2 large BMs yesterday during the day and had 10 soft-watery BMs overnight. Patient states the abdominal pain has significantly improved. Patient states ambulating the halls 4 times last night. I encouraged the patient to ambulate 20-40 times in the halls per day. She is to use the I/S at least 10 times per hour. ] Current Medications Medications (Trade) Dose Ordered Sig/Katty Route Start Time Stop Time Status Last Admin Dose Admin Dextrose/Sodium Chloride 1,000 ml @ 75 mls/hr [id number] IV 06/10/25 09:30 06/10/25 13:25 DC 06/10/25 10:13 75 MLS/HR Enoxaparin Sodium (Lovenox (Pharmacy To Dose)) 1 unit Q24H SQ 06/10/25 09:30 06/10/25 09:33 DC Ketorolac Tromethamine (toRADol) 15 mg ONCE STAT IV 06/10/25 09:24 06/10/25 09:27 DC 06/10/25 10:13 15 MG Lactated Ringer's 1,000 ml @ 125 mls/hr Q8H IV 06/10/25 13:30 07/10/25 13:29 06/11/25 06:23 125 MLS/HR Morphine Sulfate (morPHINE 4MG SYG) 4 mg ONCE STAT IVP 06/10/25 09:24 06/10/25 09:27 DC Physical Examination: Awake, alert, orientd x3 Regular rate and rhythm Unlabored breathing _Abd soft, very minimal tenderness to the LLQ, no rebound Vital Signs (last 8hr) Date Time Temp Pulse Resp B/P (MAP) Pulse Ox O2 Delivery O2 Flow Rate FiO2 06/11/25 08:00 97.3 47 18 132/56 100 Room Air 21 06/11/25 04:50 97.9 49 18 137/56 99 Room Air Laboratory: [ ] Hematology Labs: Test 06/11/25 05:32 06/10/25 06:19 Range/Units White Blood Count 6.4 4.8-10.8 K/uL Red Blood Count 4.33 4.00-5.50 MIL/uL Hemoglobin 13.5 12.0-16.0 g/dL Hematocrit 41.2 36-48 % Mean Corpuscular Volume 95.2 79-99 fL Mean Corpuscular Hemoglobin 31.2 27.0-33.0 pg Mean Corpuscular Hemoglobin Concent 32.8 32.0-36.0 g/dL Red Cell Distribution Width 12.2 11.0-15.5 % Platelet Count 135 130-400 K/uL Mean Platelet Volume 12.5 H 7.5-10.5 fL Nucleated Red Blood Cells 0.0 0.0-0.19 % Immature Granulocyte % (Auto) 0.2 0-1 % Neutrophils (%) (Auto) 48.0 40.0-77.0 % Lymphocytes (%) (Auto) 38.4 21.0-51.0 % Monocytes (%) (Auto) 9.0 3.0-13.0 % Eosinophils (%) (Auto) 3.8 0.0-8.0 % Basophils (%) (Auto) 0.6 0.0-5.0 % Neutrophils # (Auto) 3.0 1.8-7.7 K/uL Lymphocytes # (Auto) 2.4 1.0-4.8 K/uL Monocytes # (Auto) 0.6 0.1-1.0 K/uL Eosinophils # (Auto) 0.24 0.00-0.70 K/uL Basophils # (Auto) 0.04 0.00-0.20 K/uL Absolute Immature Granulocyte (auto 0.01 0-1 K/uL Chemistry Labs: Test 06/11/25 05:32 06/10/25 06:19 Range/Units Sodium Level 139 136-145 mmol/L Potassium Level 3.6 3.5-5.1 mmol/L Chloride Level 106 101-111 mmol/L Carbon Dioxide Level 26 21-32 mmol/L Blood Urea Nitrogen 10 7-18 mg/dL Creatinine 0.8 0.5-1.0 mg/dL Glomerular Filtration Rate Calc 84 >90 mL/min Random Glucose 98 70-105 mg/dL Total Calcium 8.2 L 8.5-10.1 mg/dL Magnesium Level 2.30 1.80-2.40 mg/dL Total Bilirubin 0.6 0.2-1.0 mg/dL Direct Bilirubin 0.1 0.0-0.3 mg/dL Aspartate Amino Transf (AST/SGOT) 25 10-37 U/L Alanine Aminotransferase (ALT/SGPT) 44 12-78 U/L Alkaline Phosphatase 77 50-136 U/L Total Protein 6.9 6.0-8.3 g/dL Albumin 3.8 3.5-5.0 g/dL Lipase 23 16-77 U/L Diagnostics / Radiology: [Copy/Paste Echos/Imaging Report here] Impression and Plan: [Patient with severe constipation has responded well to conservative management. Patient will be advanced to a clear liquid diet. Monitor I&Os. Ambulate. Pulm onary toilet. No surgical intervention is planned. Will continue to follow the patient.] Above patient's assessment and plan has been discussed with my attending physician, Dr. Guerra. The patient's condition has improved. She has had multiple bowel movements. Patient's abdomen is soft. She appears to have responded to the conservative management. Recommend the patient's diet be advanced. No surgical intervention plan at this point in time. I personally discussed the case with my PA and agree with my PA note above. CURTIS AGUIRRE Jun 11, 2025 11:05 MINO GUERRA MD Jun 11, 2025 17:45
[2025-06-11 12:00] VITALS: BP 135/57; PULSE 56; RESP 16; TEMP 97.5
[2025-06-11 15:55] VITALS: BP 126/60; PULSE 50; RESP 17; TEMP 98.1
--- NOTE | 2025-06-11 16:01 | DS ---
Discharge Summary Hospital Course This is a 60-year-old female with history of diverticulitis, hypertension, and obesity, who presented to the hospital with abdominal pain. Symptoms have been going on for about 10 days. The patient was treated for diverticulitis with antibiotics by her primary care physician, but due to persistent pain, decided to come to the Emergency Room. The pain is localized to the left lower quadrant with no radiation. She has some nausea and vomiting. CT of the abdomen done in the Emergency Room shows diverticulosis, no evidence of diverticulitis. No fever. No chills. WBC is normal at 6.3. No dysuria or urinary frequency. No rashes or itchiness. DIAGNOSTICS / RADIOLOGY: PATIENT: DANGELO SIMS MR#: [id number] : 1965 SEX: F AGE: 60 LOCATION: [facility] ORDER 7 STATUS: [facility] REPORT#: [id number] SERVICE 6 REASON: Rule out diverticulitis. Seen by PCP ORDERING PHYSICIAN: HAILEY AMOS MD PROCEDURE: ABD PEL W - CT ABDOMEN/PELVIS W/CONTRAST EXAM: CT Abdomen and Pelvis with IV contrast CLINICAL HISTORY: Rule out diverticulitis. TECHNIQUE: Axial computed tomography images of the abdomen and pelvis with intravenous contrast. CONTRAST: with intravenous contrast. COMPARISON: None provided. FINDINGS: LUNG BASES: The lung bases appear clear. No pleural effusions are seen. LIVER: The liver is mildly enlarged and measures 17.0 cm in craniocaudal span. GALLBLADDER AND BILE DUCTS: The gallbladder appears within normal limits. No radioopaque gallstones are seen. No biliary ductal dilatation is evident. PANCREAS: Unremarkable. SPLEEN: Unremarkable. ADRENAL GLANDS: Unremarkable. KIDNEYS, URETERS, AND BLADDER: The kidneys appear within normal limits. There is no hydronephrosis or hydroureter. No urinary calculi are seen. STOMACH AND BOWEL: The cecum and ascending colon are fecal loaded. Few colonic diverticuli without any evidence of diverticulitis. Unremarkable appearance of the stomach and bowel. No evidence of bowel obstruction. No evidence suggesting enteritis or colitis. APPENDIX: No evidence of acute appendicitis on CT examination. PERITONEUM: No free fluid. No free air. LYMPH NODES: No lymphadenopathy is evident. REPRODUCTIVE: Unremarkable as visualized. VASCULATURE: No evidence of abdominal aortic aneurysm. BONES: No aggressive appearing osseous lesion. No acute osseous pathology evident. IMPRESSION: Mild hepatomegaly. Few colonic diverticula without evidence of diverticulitis. Fecal loading of the cecum and ascending colon. /[place] DICTATED BY: AMY BOUCHER Jr., MD DATE: 06/10/25843 ASSESSMENT: Abdominal pain. Diverticulosis. Constipation. Nausea or vomiting. PLAN: Continue pain management. Continue IV fluids. Continue antiemetics. Lactulose has been administered. LANDON BOWDEN ACCOUNTANCY PROFESSOR Jun 11, 2025 16:01
--- NOTE | 2025-06-11 17:50 | NUR ---
DISCHARGE INSTRUCTIONS GIVEN TO PATIENT. PATIENT IS TO CONTINUE ALL HOME MEDICATIONS. PATIENT VERBALIZED ALL UNDERSTANDING. IV REMOVED. ALL BELONGINGS ARE WITH PATIENT.
== END 2025-06-11 18:00 | disposition home or self-care (01) ==
LOC: EDH 06:09 → INTOOBSV 09:25 → EDHIP 09:25 → 1MS 12:41
PROVIDERS: ADMIT Internal Medicine Infectious Disease; ATTEND Internal Medicine Infectious Disease
DX: K57.32 Diverticulitis of large intestine without perforation or abscess without bleeding (principal); I10 Essential (primary) hypertension; K59.00 Constipation, unspecified; R16.0 Hepatomegaly, not elsewhere classified; R11.2 Nausea with vomiting, unspecified; F19.90 Other psychoactive substance use, unspecified, uncomplicated; E66.9 Obesity, unspecified; Z90.710 Acquired absence of both cervix and uterus; Z90.721 Acquired absence of ovaries, unilateral; Z90.81 Acquired absence of spleen; Z79.899 Other long term (current) drug therapy; Z98.890 Other specified postprocedural states
CPT/HCPCS: 96361 ×2; 96375 ×2; 99285; 80076; 80048 ×2; 83690; 85025; 81003; 36415 ×2; 74177; 96374; 83735; 85027; J7042; J2405; J2270; J1885; Q9967; G0378 ×5